=== PATIENT | female | born 1995 | race Caucasian/White ===

== ENCOUNTER 2017-06-20 10:50 | Emergency (ER) | payer OTHER, MEDICAID ==
[~2017-06-20] VITALS: Ht 162.6 cm; Wt 54.4 kg
--- OUTSIDE RECORDS SUMMARY | 2017-06-20 10:59 | External Medical Summary Rpt | CCD ---
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, single episode, mild F32.9 Major depressive disorder, single episode, unspecified F41.1 Generalized anxiety disorder F41.9 Anxiety disorder, unspecified H60.501 Unspecified acute noninfectiv e otitis externa, right ear H65.192 Other acute nonsuppurat krishna otitis media, left ear H66.90 Otitis media, unspecified , unspecified ear J02.9 Acute pharyngitis , unspecified J03.90 Acute tonsillitis , unspecified M54.5 Low back pain M54.6 Pain in thoracic spine N93.8 Other specified abnormal uterine and vaginal bleeding O03.4 Incomplete spontaneous without complicatio n O03.9 Complete or unspecified spontaneous without complicatio n O20.0 Threatened O20.9 Hemorrhage in early , unspecified O46.90 Antepartum hemorrhage, unspecified , unspecified trimester R07.89 Other chest pain R09.89 Other specified symptoms and signs involving the circulatory and respiratory systems R19.7 Diarrhea, unspecified R45.851 Suicidal ideations Z00.00 Encounter for general adult medical examination without abnormal findings Z13.0 Encounter for screening for diseases of the blood and blood-formi ng organs and certain disorders involving the immune mechanism Z13.1 Encounter for screening for diabetes mellitus Z13.21 Encounter for screening for nutritional disorder Z13.220 Encounter for screening for lipoid disorders Z13.29 Encounter for screening for other suspected endocrine disorder Z34.03 Encounter for supervision of normal first , third trimester
--- OUTSIDE RECORDS SUMMARY | 2017-06-20 10:59 | External Medical Summary Rpt | CCD ---
Author Author , [employer] Organization [employer] Address Unknown Phone [email or web address] Purpose Continuity of Care Document - 05-05-2016 [...]
--- OUTSIDE RECORDS SUMMARY | 2017-06-20 11:00 | External Medical Summary Rpt | CCD ---
Author Author [employer] Organization [employer] Address Unknown Phone Unavailable Purpose Continuity of Care Document - through 2016
--- OUTSIDE RECORDS SUMMARY | 2017-06-20 11:00 | External Medical Summary Rpt | CCD ---
Author Author , [employer] BISHOP Address Unknown Phone [email or web address] Name Relationship Address Phone KATY, Next Of Kin Unknown Unavailable NICKIE Immunization Name Date Rout CVX Reac Dose Comm Prov Is Faci e tion ent ider Refu lity Give sed n Oneal 08-0 10 999 Hist H196 No H196 o-IP 9-20 oric V 01 al Info rmat ion - Sour ce Unsp ecif ied DTaP 08-0 107 999 Hist H196 No H196 , UF 9-20 oric 01 al Info rmat ion - Sour ce Unsp ecif ied DTaP 08-0 20 999 Hist D200 No D200 9-20 oric 31 31 (Inf 01 al anri Info x) rmat ion - Sour ce Unsp ecif ied MMR 08-0 3 999 Hist H196 No H196 9-20 oric 01 al Info rmat ion - Sour ce Unsp ecif ied DTP- 05-0 22 999 Hist H196 No H196 Hib 8-19 oric 97 al Info rmat ion - Sour ce Unsp ecif ied Hib, 05-0 17 999 Hist D200 No D200 UF 8-19 oric 31 31 97 al Info rmat ion - Sour ce Unsp ecif ied DTaP 05-0 20 999 Hist D200 No D200 8-19 oric 31 31 (Inf 97 al anri Info x) rmat ion - Sour ce Unsp ecif ied MMR 05-0 3 999 Hist H196 No H196 8-19 oric 97 al Info rmat ion - Sour ce Unsp ecif ied Hep 02-0 45 999 Hist D200 No D200 B, 4-19 oric 31 31 UF 97 al Info rmat ion - Sour ce Unsp ecif ied Hep 02-0 8 999 Hist H196 No H196 B, 4-19 oric ped/ 97 al adol Info rmat ion - Sour ce Unsp ecif ied Oneal 08-1 10 999 Hist D200 No D200 o-IP 2-19 oric 31 31 V 96 al Info rmat ion - Sour ce Unsp ecif ied DTP- 08-1 22 999 Hist H196 No H196 Hib 2-19 oric 96 al Info rmat ion - Sour ce Unsp ecif ied Hib, 08-1 17 999 Hist D200 No D200 UF 2-19 oric 31 31 96 al Info rmat ion - Sour ce Unsp ecif ied DTaP 08-1 20 999 Hist D200 No D200 2-19 oric 31 31 (Inf 96 al anri Info x) rmat ion - Sour ce Unsp ecif ied Oneal 08-1 2 999 Hist H196 No H196 o-OP 2-19 oric V 96 al Info rmat ion - Sour ce Unsp ecif ied Oneal 06-0 2 999 Hist H196 No H196 o-OP 3-19 oric V 96 al Info rmat ion - Sour ce Unsp ecif ied Oneal 06-0 10 999 Hist D200 No D200 o-IP 3-19 oric 31 31 V 96 al Info rmat ion - Sour ce Unsp ecif ied DTP- 06-0 22 999 Hist H196 No H196 Hib 3-19 oric 96 al Info rmat ion - Sour ce Unsp ecif ied DTaP 06-0 20 999 Hist D200 No D200 3-19 oric 31 31 (Inf 96 al anri Info x) rmat ion - Sour ce Unsp ecif ied Hib, 06-0 17 999 Hist D200 No D200 UF 3-19 oric 31 31 96 al Info rmat ion - Sour ce Unsp ecif ied Oneal 03-2 2 999 Hist H196 No H196 o-OP 7-19 oric V 96 al Info rmat ion - Sour ce Unsp ecif ied Hib, 03-2 17 999 Hist D200 No D200 UF 7-19 oric 31 31 96 al Info rmat ion - Sour ce Unsp ecif ied Oneal 03-2 10 999 Hist D200 No D200 o-IP 7-19 oric 31 31 V 96 al Info rmat ion - Sour ce Unsp ecif ied DTP- 03-2 22 999 Hist H196 No H196 Hib 7-19 oric 96 al Info rmat ion - Sour ce Unsp ecif ied DTaP 03-2 20 999 Hist D200 No D200 7-19 oric 31 31 (Inf 96 al anri Info x) rmat ion - Sour ce Unsp ecif ied Hep 03-0 45 999 Hist H196 No H196 B, 4-19 oric UF 96 al Info rmat ion - Sour ce Unsp ecif ied
--- OUTSIDE RECORDS SUMMARY | 2017-06-20 11:00 | External Medical Summary Rpt | CCD ---
Author Author , [employer] BISHOP Address Unknown Phone [email or web address] Support Name Relationship Address Phone KATY, Next [...]
--- OUTSIDE RECORDS SUMMARY | 2017-06-20 11:01 | External Medical Summary Rpt ---
Author Author [employer], [employer] Organization [employer] Address Unknown Phone Unavailable
--- NOTE | 2017-06-20 11:24 | Urgent Treatment Center Report ---
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 N If Yes, where/when: Have you had exposure to infectious disease within the past month? TB? Other? 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 No Angina: No IN: No Hypertension? No Hyperlipidemia? No CHF? No DVT? No PE? No COPD? No Asthma? No Anemia? No GERD? No Gastric ulcers? No GI Bleed? No Hernia? No Thyroid Problems? No Hypothyroidism? No CVA? No Seizures? No Diabetes? No Renal Insuffiency? No UTI? No Stones? No BPH? No GB Disease: No Nephritic Syndrome? No Asplenia? No Hepatitis? No Sickle Cell Disease? No Arthritis? No Migraines? No Cataracts? No Glaucoma? No MRSA? No HIV? No TB? No Anxiety? No Depression? No Cancer? No More? No Immunization HX DT/Tetanus Unknown Surgical Hx Previous Surgery?N Social History Smoking Hx Smoker: Former Smoker Tobacco: No Alcohol Alcohol: No Review of Systems All Other Systems Reviewed and Negative Musculoskeletal back pain, muscle pain, muscle stiffness Physical Exam Vital Signs Vital Signs Date Time Temp Pulse Resp B/P Pulse O2 O2 Flow FiO2 Ox Delivery Rate 06/20 1129 16 06/20 1106 98.3 88 16 120/91 100 General Appearance normal appearance, WD/WN, no apparent distress Ear, Nose, Throat normal ENT inspection Respiratory Status Yes: trachea midline, chest symmetrical, non tender chest. No: respiratory distress. Lung Sounds bilateral: normal breath sounds, lungs clear. Cardiovascular normal exam, regular rate/rhythm Back no CVA tenderness, no vertebral tenderness, bowel/bladder continent, gait normal, muscle spasm Neurologic alert, normal exam, oriented x 3 Medical Decision Making LABS/Meds/Orders Pt receiving controlled substance in ED? No Results/Orders Laboratory Tests 06/20/17 1114: Urine Test NEGATIVE Current Medication Orders Sig/William Start time Last Medication Dose Route Stop Time Status Admin Ketorolac 60 MG ONCE ONE 06/20 1130 DC 06/20 Tromethamine IM 06/20 113 1129 Orphenadrine Citrate 60 MG ONCE ONE 06/20 1130 DC 06/20 IM 06/20 1131 1128 Ketorolac 0 .STK-MED ONE 06/20 1126 DC Tromethamine .ROUTE Orphenadrine Citrate 0 .STK-MED ONE 06/20 1126 DC .ROUTE Orders Procedure Date/time Status [facility] URINE 06/20 111 Complete Progress [facility] Progress Notes Comment Patient informed that we needed to do Tspine xray Patient advised that she did not want an xray at this time State that medication is helping with pain and she feels like she can move more and muscle spasm she was having in her back feels much better State that if pain continued or gets worse she will follow up for xray or further treatments Departure Departure Time of Disposition 1141 Disposition DC Home or Self Care(routine) Clinical Impression Primary Impression: Muscle spasm Condition STABLE Referrals NICA GARCIA (Family): 2 Days-Call Office if no improvement Patient Instructions DI for Muscle Spasm Additional Instructions *Ibuprofen lucho 6 hours with meal as needed for pain/inflammation *Remember you had a Toradol shot in the clinic today, which is similar to Motrin *Not additional anti-inflammatory like motrin, aleve, advil with the above amount of ibuprofen. You can still take Tylenol every 4 hours as needed if you need something else for pain *Ice 20 minutes every 2 hours for the first 48 hours after the initial injury followed by moist heat every 20 minutes 3-4 times a day to affected area *Muscle relaxer every 8 hours as needed for muscle spasms but remember, it WILL cause drowsiness You cannot take it and drive, operate machinery or care for small children. *Keep this area active, no movement leads to more stiffness, However take it easy and avoid heavy lifting pushing or pulling Discharge Counseling Counseled pt/family regarding diagnosis, medications/RX, home care, follow up needs Prescriptions Current Visit Scripts Cyclobenzaprine Hcl (Flexeril) 10 MG PO TID #15 TAB Ibuprofen (Ibuprofen 800MG) 800 MG PO QIDP PRN pain #30 TAB at 5423
[2017-06-20] MEDS ORDERED: IBUPROFEN800 MG PO (11:45)
[2017-06-20] MEDS ORDERED: FLEXERIL10 MG PO (11:45)
[2017-06-20 11:47] VITALS: BP 117/88
== END 2017-06-20 11:47 | disposition home or self-care (01) ==
LOC: UTC 10:50
DX: M62.830 Muscle spasm of back (principal); X50.0XXA Overexertion from strenuous movement or load, initial encounter; Z87.891 Personal history of nicotine dependence